=== PATIENT | male | born 1990 | race Caucasian/White ===

== ENCOUNTER 2018-10-05 06:02 | Day surgery (SDC) | payer OTHER ==
[2018-09-13 13:30] VITALS: BMI 22.8
[2018-10-05] MEDS ORDERED: ROPIVACAINE HCL 0.5% 30ML VIAL ONE (06:58)
[2018-10-05] MEDS ORDERED: MIDAZOLAM HCL 2 MG/2 ML SINGLE DOSE VIAL ONE ×2 (06:58→07:09)
[2018-10-05] MEDS ORDERED: SUCCINYLCHOLINE CHLORIDE 200 MG/10 ML VIAL ONE (07:10)
[2018-10-05] MEDS ORDERED: PROPOFOL 20 ML ONE ×2 (07:10→08:28)
[2018-10-05] MEDS ORDERED: BUPIVACAINE HCL/EPINEPHRINE/PF 30 ML VIAL IJ ONE (07:17)
[2018-10-05] MEDS ORDERED: ceFAZolin SODIUM 1 GM VIAL ONE (07:55)
[2018-10-05] MEDS ORDERED: BUPIVACAINE 0.25% /EPI 1:200,000 10 ML VIAL INF ONE (08:28)
[2018-10-05] MEDS ORDERED: oxyCODONE HCL 5 MG TABLET PO PRN ×2 (09:07→10:02)
[2018-10-05] MEDS ORDERED: oxyCODONE HCL 10 MG SUSTAINED ACTING TABLET PO ONE (09:07)
--- NOTE | 2018-10-05 09:10 | OP ---
Operative Note - Note: Operative Date: 10/05/18 Pre-Operative Diagnosis: Right shoulder posterior labral tear Operation: RSA, labral repair Post-Operative Diagnosis: Same as Pre-op Surgeon: Chris Alvarez Gear Room Keeper: Nina Friedman Anesthesiologist/NON PROFIT DIRECTOR: Deng Dubose Anesthesia: General Operative Report Dictated: Yes
--- NOTE | 2018-10-05 09:10 | DS ---
Physical Examination Vital Signs: Vital Signs Temperature 98.2 F 10/05/18 06:43 Pulse Rate 74 10/05/18 06:43 Respiratory Rate 18 10/05/18 06:45 Blood Pressure 131/80 10/05/18 06:43 O2 Sat by Pulse Oximetry (%) 100 10/05/18 06:45 Discharge Summary Reason For Visit: RIGHT SHOULDER POSTERIOR LABRAL TEAR Condition: Good - Instructions Diet, Activity, Other Instructions: Post Operative Instructions: Shoulder Arthroscopy Dr Chris Alvarez 1. Pain following a Shoulder Arthroscopy is variable and can be significant. Some patients will have more pain than others. You have been provided with a prescription for medication that contains a narcotic. You are not allowed to drive while on this medication. You should take Tylenol (Acetaminophen) when taking the pain medication ( it will NOT result in an overdose). Feel free to take medications such as Ibuprofen or Naprosyn in addition to the pain medicine if you do not have any problems with the NSAID class of medications. 2. Apply ice to the shoulder for 15 minutes every hour. You may continue this for as many days as necessary. 3. You may find sleeping on an incline (reclining chair) to be more comfortable for the first few days. 4. You should remain in your sling most of the time except when showering. The only exception to this is to allow you to stretch your elbow a few times a day to prevent your hand and forearm from swelling. 5. You are not to use your arm to reach for anything, lift anything or carry anything until instructed otherwise. 6. You may remove the bandages in 24 hours. You may shower at that point. 7. Place band-aids on the sutures after your shower.Do not put any creams or lotions on the incisions. 8. Please call the office to schedule a visit to have your sutures removed. 9. If for any reason you believe you may have an infection or are concerned, please feel free to call me. I can be reached through our office number 24 hours a day. 10. Please call our office with any questions; we will review the surgical findings during your post-operative visit. Disposition: HOME - Home Medications Comprehensive Discharge Medication List: Ambulatory Orders Ibuprofen [Advil -] 200 mg PO ASDIR PRN 09/13/18
[2018-10-05] MEDS ORDERED: ONDANSETRON 4 MG/2 ML VIAL IVPUSH PRN (10:02)
[2018-10-05 10:09] VITALS: TEMP 97.7
[2018-10-05] MEDS ORDERED: LACTATED RINGERS SOLUTION 1,000 ML IV SCH (10:15)
--- NOTE | 2018-10-05 10:27 | SURG ---
Surgery [employer] W[employer] Note [employer] Warden: Nina Friedman PA-C Date of Service: 10/05/18 Diagnosis: Right shoulder posterior labral tear Procedure: RSA, labral repair I was present for the entirety of the operative procedure. For further detail, please refer to operative report. Visit type - Case Type Case Type: Scheduled - Emergency Emergency Visit: No - New patient This patient is new to me today: Yes Date on this admission: 10/05/18
[2018-10-05 11:38] VITALS: BP 121/72; PULSE 78
== END 2018-10-05 11:41 | disposition home or self-care (01) ==
LOC: FASU 06:02
PROVIDERS: ATTEND Orthopaedic Surgery
PROC: 0MM14ZZ Reattachment of Right Shoulder Bursa and Ligament, Percutaneous Endoscopic Approach (ICD-10-PCS; principal; 2018-10-05 08:19)
DX: S43.431A Superior glenoid labrum lesion of right shoulder, initial encounter (principal); X58.XXXA Exposure to other specified factors, initial encounter; Y93.9 Activity, unspecified; Y92.9 Unspecified place or not applicable
CPT/HCPCS: 94760